=== PATIENT | female | born 1940 | race Caucasian/White ===

== ENCOUNTER 2018-03-08 13:06 | Inpatient (IN) ==
[2018-03-08] MEDS ORDERED: ISOVUE-370 100 ML INFUS..BTL IV ONE ×2 (13:40→16:51)
[2018-03-08] MEDS ORDERED: Ondansetron 4 MG/2 ML VIAL IVP ONE ×2 (13:41→16:05)
[2018-03-08] MEDS ORDERED: Famotidine 20 MG/2 ML VIAL IVP ONE (13:41)
[2018-03-08] MEDS ORDERED: *HR* FentaNYL (PF) 100 MCG/2 ML VIAL IVP ONE ×2 (13:41→16:05)
--- NOTE | 2018-03-08 13:44 | Emergency Department Note ---
Disposition Clinical Impression: Abdominal pain, Elevated LFTs, Cholelithiasis Disposition: Admitted As Inpatient Condition: Fair Referrals: Efrem Dumont MD [Primary Care Provider] - Forms: ED Satisfaction Letter Time of Disposition: 15:38 Nausea/Vomiting/Diarrhea HPI - General Chief complaint: ED Nausea/Vomiting/Diarrhea Stated complaint: VOMITING,DIARRHEA Time Seen by Provider: 03/08/18 13:31 Source: patient Limitations: no limitations Nursing Notes Reviewed: Yes Vital Signs Reviewed: Yes - History of Present Illness HPI Narrative: RUQ abd pain since this morning. States n/v/d with pain. States ate chicken salad last night, along with peach ice cream and fried chicken. States pain started this morning aftre she woke up, "feels bloated" in the epigastric area. states only belly surgery was tubal when she was younger. States hx of breast cancer. no fevers, no chills, no blood in stool/vomit Pt Subjective Complaint: nausea, vomiting, diarrhea, abdominal pain - Related Data Home Medications Medication Instructions Recorded Confirmed Calcium Carbonate/Vitamin D3 1 each PO BID 03/18/15 03/08/18 [Calcium 250+D Tablet] Levothyroxine [Synthroid] 50 mcg PO DAILY 03/18/15 03/08/18 Lisinopril [Zestril] 40 mg PO DAILY 03/18/15 03/08/18 Previous Rx's Medication Instructions Recorded Flaxseed Oil 1 cap PO BID #60 capsule 01/28/16 Anastrozole [Arimidex] 1 mg PO DAILY #90 tablet 01/20/17 Cyanocobalamin (Vitamin B-12) 1 tab PO DAILY #30 tablet 01/05/18 [Vitamin B12] Allergies Allergy/AdvReac Type Severity Reaction Status Date / Time allopurinol Allergy Rash Verified 03/08/18 13:07 clindamycin Allergy Rash Verified 03/08/18 13:07 Review of Systems: All other systems are negative except as noted/marked Chart generated with voice recognition software Nursing notes reviewed Old records reviewed Past Medical History - Past Medical History Attestation: Yes The following information was validated with the patient. Source: patient, old records reviewed, nursing notes reviewed Medical history: Reports: cancer, hypertension, kidney stones, thyroid disease, other Surgical history: Reports: breast surgery Psychiatric history: Reports: no psych history - Social History Smoking Status: Never smoker Smokeless Tobacco Status: No Alcohol use: Reports: none Drug use: Reports: none Physical Exam General: NAD, VSS Head: normocephalic, atraumatic Eyes: EOMI, PERRLA mouth: moist mucous membranes Neck: NO CLA, Supple Chest wall: normal rise, no crepitus, no deformity noted Lungs: moving air well, no distress Heart: RRR, no murmur Abd: tender in RUQ, BS hyperactive : deferred MSK: strength equal in all four extremities Ext: moves all four extremities, no obvious deformities Skin: cap refill normal, warm, dry neuro : CN2-12 grossly intact, A&Ox3 Psych: normal affect, not anxious - General Limitations: no limitations General appearance: alert, in no apparent distress Course Vital Signs Temperature 98.3 F 03/08/18 13:14 Pulse Rate 63 03/08/18 13:14 Respiratory Rate 18 03/08/18 13:14 Blood Pressure 197/70 03/08/18 13:14 O2 Sat by Pulse Oximetry 96 03/08/18 13:14 Temperature 98.3 F 03/08/18 13:14 Pulse Rate 63 03/08/18 13:14 Respiratory Rate 18 03/08/18 13:14 Blood Pressure 197/70 03/08/18 13:14 O2 Sat by Pulse Oximetry 96 03/08/18 13:14 Oxygen Delivery Oxygen Delivery Room Air Nausea/Vomiting/Diarrhea - [facility] Narrative Medical decision making narrative: 77-year-old female presents today with nausea vomiting diarrhea started this morning and a fullness in her upper abdomen. Straight tender in the right upper quadrant when he palpate. This improved somewhat with pain medicine and nausea medicine however she states she does not feel great. Her bilirubin is elevated her LFTs are elevated she does have stones and medical on the CT however they state her gallbladder does not look infected. Her white count is normal. Not sure if she has a stone stuck or if she has hepatitis but given that she is still having pain and has abnormal lab work I think she needs further workup. Consult placed to the hospitalist Hospitalist called back at 1545, discussed the case with me. At this time he did not feel she needed to be transferred down the main campus. States that she should be watched here however LFTs trended and if things do not improve then to transfer her down. I spoke with our hospitalist who agreed with this. I added a viral hepatitis panel is is a happy outbreak going around. Patient's agreeable to staying overnight and having her LFTs monitored. I will give her another dose of pain medications and nausea medicines prior to transfer to the main side of the hospital. - Medical Records Medical records reviewed: Yes I reviewed the patient's medical records. - Lab Data Lab results reviewed: Yes I reviewed the patient's lab results. Result diagrams: 03/08/18 13:52 03/08/18 13:52 Lab Results 03/08/18 03/08/18 03/08/18 Range/Units 13:52 13:52 13:52 WBC 7.5 (4.3-11.1) K/mcL RBC 3.29 L (3.82-4.97) M/mcL Hgb 10.3 L (11.5-15.4) g/dL Hct 31.4 L (35.3-44.9) % MCV 95.4 (83.0-100.0) fL MCH 31.3 (28.0-33.3) pg MCHC 32.8 (31.6-35.5) g/dL RDW 13.0 (11.5-14.5) % Plt Count 193 (140-400) K/mcL MPV 9.6 (9.4-12.4) fL Immature Gran % 0.4 (0-4) % Seg Neutrophils % 81.7 % Lymphocytes % 11.9 % Monocytes % 5.1 % Eosinophils % 0.4 % Basophils % 0.5 % Neutrophils # 6.1 (1.6-8.9) K/mcL Lymphocytes # 0.9 (0.6-4.6) K/mcL Monocytes # 0.4 (0.0-1.3) K/mcL Eosinophils # 0.0 (0.0-0.6) K/mcL Basophils # 0.0 (0.0-0.2) K/mcL PT 11.1 (9.4-12.1) Seconds INR 1.0 APTT 32.4 (26.0-36.0) Seconds Sodium 136 (136-145) mEq/L Potassium 4.9 (3.5-5.1) mEq/L Chloride 103 (98-107) mEq/L Carbon Dioxide 26 (23-29) mEq/L BUN 27 H (8-23) mg/dL Creatinine 1.34 H (0.60-1.20) mg/dL Est GFR ( Amer) 46 L (> 60) Est GFR (Non-Af Amer) 38 L (> 60) BUN/Creatinine Ratio 20 (6-26) Glucose 225 H (70-105) mg/dL Calculated Osmolality 294 (280-300) Calcium 9.6 (8.6-10.3) mg/dL Total Bilirubin 1.1 H (0.3-1.0) mg/dL Direct Bilirubin 0.7 H (0.0-0.2) mg/dL Indirect Bilirubin 0.4 (0.0-1.2) mg/dL AST 208 H (13-39) Units/L ALT 138 H (7-52) Units/L Alkaline Phosphatase 91 (34-104) Units/L Troponin I < 0.03 (< 0.04) ng/mL Serum Total Protein 7.2 (6.4-8.9) g/dL Albumin 3.8 (3.5-5.7) g/dL Globulin 3.4 (2.4-3.5) g/dL Albumin/Globulin Ratio 1.1 (1.1-2.2) Lipase 35 (11-82) Units/L - Radiology Data Radiology results reviewed: Yes I reviewed the patient's radiology results. EXAMINATION: CT OF THE ABDOMEN AND PELVIS WITHOUT CONTRAST 03/08/2018 2:56 pm TECHNIQUE: CT of the abdomen and pelvis was performed without the administration of intravenous contrast. Multiplanar reformatted images are provided for review. Dose modulation, iterative reconstruction, and/or weight based adjustment of the mA/kV was utilized to reduce the radiation dose to as low as reasonably achievable. COMPARISON: 12/27/2017. HISTORY: ORDERING SYSTEM PROVIDED HISTORY: PAIN Vomiting and diarrhea, onset this morning. Patient thinks that it may have been food poisoning. FINDINGS: Lower Chest: Mild likely atelectasis to the visualized lung bases. No focal consolidations or pleural effusions. Organs: Unenhanced liver, spleen, pancreas and adrenal glands are unremarkable. There is no evidence for urinary tract stone or urinary tract obstruction to either kidney. Redemonstration of low-attenuation foci to both kidneys felt to reflect benign renal cysts and without necessity for continued follow-up. Multiple stones redemonstrated within the gallbladder which otherwise appears unremarkable. GI/Bowel: No evidence for obstruction or definite bowel wall thickening to unopacified large or small bowel. Unopacified stomach appears unremarkable. No evidence for acute appendicitis. Pelvis: Urinary bladder, uterus and adnexa appear unremarkable. Peritoneum/Retroperitoneum: No ascites or focal fluid collections. No intraperitoneal free air. Atherosclerosis. No lymphadenopathy is seen. Bones/Soft Tissues: No acute or suspicious bony or soft tissue abnormalities. CT/CT abd pelvis wo no iv no oral IMPRESSION: No acute or focal findings are seen to the abdomen or pelvis to explain the patient's symptoms. Cholelithiasis. D/ / 03/08/2018 15:05:11 Hesham Couch MD / uri Interpreting Provider: Hesham Couch MD
[2018-03-08 14:07] LABS: Basophils % 0.5 %; Eosinophils % 0.4 %; Hematocrit 31.4 % (35.3-44.9); Hemoglobin 10.3 g/dL (11.5-15.4); Immature Granulocytes % 0.4 % (0-4); Lymphocytes # 0.9 K/mcL (0.6-4.6); Lymphocytes % 11.9 %; Mean Corpuscular HGB Conc 32.8 g/dL (31.6-35.5); Mean Corpuscular Hemoglobin 31.3 pg (28.0-33.3); Mean Corpuscular Volume 95.4 fL (83.0-100.0); Mean Platelet Volume 9.6 fL (9.4-12.4); Monocytes # 0.4 K/mcL (0.0-1.3); Monocytes % 5.1 %; Neutrophils # 6.1 K/mcL (1.6-8.9); Platelet Count 193 K/mcL (140-400); Red Blood Count 3.29 M/mcL (3.82-4.97); Segmented Neutrophils % 81.7 %
[2018-03-08 14:13] LABS: Prothrombin Time 11.1 Seconds (9.4-12.1)
[2018-03-08 14:15] LABS: Activated Partial Thrombo Time 32.4 Seconds (26.0-36.0)
[2018-03-08 14:23] LABS: Alanine Aminotransferase 138 Units/L (7-52); Albumin 3.8 g/dL (3.5-5.7); Albumin/Globulin Ratio 1.1 (1.1-2.2); Alkaline Phosphatase 91 Units/L (34-104); Aspartate Amino Transferase 208 Units/L (13-39); BUN/Creatinine Ratio 20 (6-26); Bilirubin,Direct 0.7 mg/dL (0.0-0.2); Bilirubin,Indirect 0.4 mg/dL (0.0-1.2); Bilirubin,Total 1.1 mg/dL (0.3-1.0); Blood Urea Nitrogen 27 mg/dL (8-23); Calcium 9.6 mg/dL (8.6-10.3); Carbon Dioxide 26 mEq/L (23-29); Chloride 103 mEq/L (98-107); Globulin 3.4 g/dL (2.4-3.5); Glucose 225 mg/dL (70-105); Lipase 35 Units/L (11-82); Osmolality,Calculated 294 (280-300); Potassium 4.9 mEq/L (3.5-5.1); Sodium 136 mEq/L (136-145); Total Protein 7.2 g/dL (6.4-8.9); eGFR For Non-African Americans 38 (> 60)
[2018-03-08 14:24] LABS: Troponin I < 0.03 ng/mL (< 0.04)
[2018-03-08] MEDS ORDERED: 0.9 % Sodium Chloride 1,000 ML IVC ONE (14:57)
[2018-03-08] MEDS ORDERED: Naloxone 0.4 MG/ML INJ IVP PRN (16:51)
[2018-03-08] MEDS ORDERED: *HR* HYDROcodone/Acet 5/325 mg TABLET PO PRN ×2 (16:51→19:48)
[2018-03-08] MEDS ORDERED: Ibuprofen 400 MG TABLET PO PRN (16:51)
[2018-03-08] MEDS ORDERED: Ondansetron 4 MG/2 ML VIAL IVP PRN (16:51)
[2018-03-08] MEDS ORDERED: 0.9 % Sodium Chloride 1,000 ML IVC SCH (16:51)
[2018-03-08] MEDS ORDERED: *HR* Promethazine 25 MG/ML VIAL IVP PRN (16:51)
[2018-03-08] MEDS ORDERED: MOM Conc 10 ML UD.LIQ PO PRN (16:51)
[2018-03-08] MEDS ORDERED: Mag Hydrox/Al Hydrox/Simeth 30 ML UDC PO PRN (16:51)
[2018-03-08] MEDS ORDERED: Ketorolac 30 MG/ML VIAL IVP PRN (16:51)
[2018-03-08] MEDS ORDERED: FLAXSEED OIL PO SCH (21:00)
[2018-03-08 22:03] LABS: Hepatitis B Surface Antigen Nonreactive (Nonreactive)
[2018-03-09 02:20] LABS: Hepatitis A Antibody IgM Nonreactive (Nonreactive); Hepatitis B Core IgM Nonreactive (Nonreactive); Hepatitis C Virus Antibody Nonreactive (Nonreactive)
[2018-03-09 04:58] LABS: Basophils % 0.3 %; Eosinophils # 0.1 K/mcL (0.0-0.6); Hematocrit 29.4 % (35.3-44.9); Hemoglobin 9.7 g/dL (11.5-15.4); Immature Granulocytes % 0.3 % (0-4); Lymphocytes # 1.3 K/mcL (0.6-4.6); Lymphocytes % 20.5 %; Mean Corpuscular Hemoglobin 31.4 pg (28.0-33.3); Mean Corpuscular Volume 95.1 fL (83.0-100.0); Mean Platelet Volume 9.6 fL (9.4-12.4); Monocytes # 0.5 K/mcL (0.0-1.3); Monocytes % 7.6 %; Neutrophils # 4.4 K/mcL (1.6-8.9); Platelet Count 172 K/mcL (140-400); Red Blood Count 3.09 M/mcL (3.82-4.97); Red Cell Distribution Width 12.8 % (11.5-14.5); Segmented Neutrophils % 70.3 %
[2018-03-09 05:12] LABS: Bilirubin,Urine Negative (Negative); Blood,Urine Trace-intact (Negative); Color,Urine Yellow (Yellow); Glucose,Urine (UA) Normal (Normal); Ketones,Urine Negative (Negative); Leukocyte Esterase,Urine Moderate (Negative); Nitrite,Urine Positive (Negative); PH,Urine 5.5 pH Units (5.0-8.0); Protein,Urine Negative (Neg-Trace); Specific Gravity,Urine 1.015 (1.010-1.025); Urobilinogen,Urine Normal (Normal)
[2018-03-09 05:22] LABS: Clarity,Urine Cloudy (Clear)
[2018-03-09 05:24] LABS: Bacteria,Urine Many per hpf (None-Few); RBC,Urine 0-3 per hpf (0-3)
[2018-03-09 05:24] LABS: Albumin 3.4 g/dL (3.5-5.7); Albumin/Globulin Ratio 1.1 (1.1-2.2); Bilirubin,Direct 1.5 mg/dL (0.0-0.2); Bilirubin,Total 2.3 mg/dL (0.3-1.0); Chol/HDL Ratio 5.3 (0-4.9); Globulin 3.1 g/dL (2.4-3.5); Magnesium 1.7 mg/dL (1.6-2.6); Phosphorous 2.9 mg/dL (2.7-4.5); Total Protein 6.5 g/dL (6.4-8.9)
[2018-03-09] MEDS: Levothyroxine 25 MCG TABLET PO SCH (06:39)
[2018-03-09] MEDS: Cholecalciferol (D-3) 1,000 UNIT TABLET PO SCH (08:52)
[2018-03-09] MEDS: Anastrozole 1 MG TABLET PO SCH ×2 (08:53→09:09)
[2018-03-09] MEDS ORDERED: Cyanocobalamin (B-12) 1,000 MCG TABLET PO SCH (09:00)
[2018-03-09] MEDS ORDERED: Lisinopril 20 MG TABLET PO SCH (09:00)
--- NOTE | 2018-03-09 11:12 | Internal Med History&Physical ---
Date of Encounter: 03/09/18 Time of Encounter: 10:45 Assessment and Plan (1) Vomiting and diarrhea Current visit: Yes Status: Acute Suspect viral gastroenteritis. IV fluids have been ordered. Antibiotics will be given as needed. (2) Elevated LFTs Current visit: Yes Status: Acute Hepatitis profile negative for hepatitis ABC. Possibly related to viral gastroenteritis. Alkaline phosphatase was normal in emergency room. She will probably need a gallbladder ultrasound. (3) CKD (chronic kidney disease) stage 3, GFR 30-59 ml/min Current visit: Yes Status: Acute (4) Hyperlipidemia Current visit: Yes Status: Acute Lipid profile today shows cholesterol 210, triglycerides 213, LDL 123, HDL 40, and total/HDL ratio 5.3 Qualifiers: Hyperlipidemia type: mixed hyperlipidemia Qualified Code(s): E78.2 - Mixed hyperlipidemia (5) Hypothyroidism Current visit: Yes Status: Chronic TSH was normal at 4.442 on 06/15/2016. Continue Synthroid. Qualifiers: Hypothyroidism type: unspecified Qualified Code(s): E03.9 - Hypothyroidism , unspecified (6) Hypertension Current visit: No Status: Chronic Lisinopril was held on admission to see if azotemia improves. Blood pressure will be monitored. Qualifiers: Hypertension type: essential hypertension Qualified Code(s): I10 - Essential (primary) hypertension (7) Anemia Current visit: No Status: Chronic Anemia testing has shown no factor deficiency. Continue to monitor CBC. Qualifiers: Anemia type: unspecified type Qualified Code(s): D64.9 - Anemia, unspecified Internal Medicine - H&P: HPI Chief complaint: Vomiting and diarrhea Admitted From: Emergency Dept Plans for Post Hospital Care: Home History of present illness: Ms. Das is a 77 year old female who came to emergency room stating she had onset of vomiting and diarrhea approximately 0800 the day of admission. She reports 2-3 episodes of vomiting and diarrhea without visible blood in either. There was no significant abdominal pain. She was brought to emergency room and evaluated and found to have slightly elevated LFTs. Abdominal/pelvic CT showed no acute findings. Cholelithiasis without evidence of cholecystitis was seen. She was admitted to [facility] floor for ongoing care needs. She reports previous similar episodes March 2017 and November 2017. She denies disorders of her liver or exocrine pancreas. She states she feels improved at the present time and has had no further vomiting or diarrhea since coming to emergency room. Past Med Surg Social Fam HX - Past Medical History Medical history: cancer, hypertension, kidney stones, thyroid disease Additional medical history: breast cancer-lumpectomy (20 radiation treatments) Psychiatric history: no psych history - Past Surgical History Surgical History: breast surgery Additional surgical history: BREAST CANCER - Social History Smoking Status: Never smoker Smokeless Tobacco Status: No Alcohol use: none Drug use: none - Family History Mother Living Status: Age at : 87 Hx Family Endocrine Disorder: Yes (diabetes) Father Living Status: Age at : 68 Hx Family Cancer: Yes (lung cancer) Internal Medicine - H&P: Meds Calcium Carbonate/Vitamin D3 [Calcium 250+D Tablet] 1 each PO BID 03/18/15 [ History] Levothyroxine [Synthroid] 50 mcg PO DAILY 03/18/15 [History] Lisinopril [Zestril] 40 mg PO DAILY 03/18/15 [History] Flaxseed Oil 1 cap PO BID #60 capsule 01/28/16 [Rx] Anastrozole [Arimidex] 1 mg PO DAILY #90 tablet 01/20/17 [Rx] Cyanocobalamin (Vitamin B-12) [Vitamin B12] 1 tab PO DAILY #30 tablet 01/05/18 [ Rx] 3 Allergy/AdvReac Type Severity Reaction Status Date / Time allopurinol Allergy Rash Verified 03/08/18 13:07 clindamycin Allergy Rash Verified 03/08/18 13:07 All Systems PM: A 10-system review of systems was performed and is negative for pertinent findings except as documented above in the HPI. Review of systems: Gen.: She states her weight has decreased approximately 10 pounds in the past year, intentionally Cardiovascular: She has history of hypertension but denies VT heart failure angina DVT or pulmonary embolus Respiratory: She is a lifelong nonsmoker denies chronic lung disease GI: As per history of present illness : She denies hematuria dysuria or kidney stones. She has chronic kidney disease stage III Neurologic: She denies large distribution strokes or seizures. Endocrine: She reports borderline diabetes. She has hypothyroidism. She has hyperlipidemia but does not take medication at this time. Hematology/oncology: She had breast cancer 2013 with lumpectomy followed by XRT. She is now on Arimidex. Diagnosis list includes MGUS. She follows with [facility] oncologist. She has anemia with workup December 2017 showing no fracture deficiency. She has history of B12 deficiency and is on oral B12 supplement daily. Psychiatric: She denies anxiety depression or other mental health issues. [place] skeletal: She has history of gout but does not take medication at this time. She denies other bone joint or muscle disorders. - Constitutional Vitals: Temp Pulse Resp BP Pulse Ox 99.6 F 73 14 137/62 94 03/09/18 06:23 03/09/18 06:23 03/09/18 06:23 03/09/18 06:23 03/09/18 06:23 Exam: Gen.: She is a well-developed overweight female lying in bed who appears in no acute distress at present time HEENT: Head is atraumatic and normocephalic. Eyes: EOMI. There is no scleral icterus. Mouth: Mucosa is moist. Neck: Supple and nontender. There is no thyromegaly or adenopathy noted. Heart: Regular without murmurs gallops or ectopics Lungs: No wheezes or crackles are heard. Abdomen: Soft and nontender. No masses or guarding are noted. Extremities: There is no cyanosis edema or clubbing noted. Dorsalis pedis and posttibial pulses are 1-2 over 2 bilaterally. Neurologic: Mental status: She is talkative and a good historian. Cranial nerves: Smile is symmetric. Forehead wrinkles bilaterally. Tongue protrudes midline. EOMI. Motor: There is no pronator drift. Cerebellar: Finger to nose is intact bilaterally. Skin: Warm and dry Internal Med - H&P Results - Labs CBC & Chem 7: 03/09/18 04:48 03/09/18 04:48 Labs: Short CBC 03/09/18 Range/Units 04:48 WBC 6.2 (4.3-11.1) K/mcL Hgb 9.7 L (11.5-15.4) g/dL Hct 29.4 L (35.3-44.9) % Plt Count 172 (140-400) K/mcL Neutrophils # 4.4 (1.6-8.9) K/mcL BMP 03/09/18 04:48 Sodium 138 Potassium 4.0 Chloride 105 Carbon Dioxide 26 BUN 21 Creatinine 1.26 H Glucose 130 H Calcium 9.0 Liver Function 03/09/18 Range/Units 04:48 Total Bilirubin 2.3 H (0.3-1.0) mg/dL Direct Bilirubin 1.5 H (0.0-0.2) mg/dL AST 539 H (13-39) Units/L ALT 471 H (7-52) Units/L Alkaline Phosphatase 105 H (34-104) Units/L Albumin 3.4 L (3.5-5.7) g/dL Urine 03/09/18 Range/Units 05:00 Urine Color Yellow (Yellow) Urine Clarity Cloudy A (Clear) Urine pH 5.5 (5.0-8.0) pH Units Ur Specific [place] 1.015 (1.010-1.025) Urine Protein Negative (Neg-Trace) mg/dL Urine Glucose (UA) Normal (Normal) mg/dL
[2018-03-10 05:28] LABS: Basophils % 0.7 %; Eosinophils # 0.2 K/mcL (0.0-0.6); Eosinophils % 4.1 %; Hematocrit 30.1 % (35.3-44.9); Hemoglobin 9.8 g/dL (11.5-15.4); Immature Granulocytes % 0.2 % (0-4); Lymphocytes # 1.4 K/mcL (0.6-4.6); Lymphocytes % 30.9 %; Mean Corpuscular HGB Conc 32.6 g/dL (31.6-35.5); Mean Corpuscular Hemoglobin 31.3 pg (28.0-33.3); Mean Corpuscular Volume 96.2 fL (83.0-100.0); Mean Platelet Volume 10.2 fL (9.4-12.4); Monocytes # 0.4 K/mcL (0.0-1.3); Monocytes % 8.5 %; Neutrophils # 2.6 K/mcL (1.6-8.9); Platelet Count 172 K/mcL (140-400); Red Blood Count 3.13 M/mcL (3.82-4.97); Red Cell Distribution Width 12.9 % (11.5-14.5); Segmented Neutrophils % 55.6 %
[2018-03-10 05:48] LABS: Albumin 3.5 g/dL (3.5-5.7); Albumin/Globulin Ratio 1.1 (1.1-2.2); Bilirubin,Total 3.1 mg/dL (0.3-1.0); Calcium 9.7 mg/dL (8.6-10.3); Globulin 3.1 g/dL (2.4-3.5); Potassium 3.9 mEq/L (3.5-5.1); Total Protein 6.6 g/dL (6.4-8.9)
[2018-03-10 06:14] VITALS: BP 169/69
[2018-03-10] MEDS: Levothyroxine 25 MCG TABLET PO SCH (06:14)
[2018-03-10] MEDS: Anastrozole 1 MG TABLET PO SCH (07:53)
[2018-03-10] MEDS: Cholecalciferol (D-3) 1,000 UNIT TABLET PO SCH (07:53)
[2018-03-10] MEDS ORDERED: Cyanocobalamin (B-12) 1,000 MCG TABLET PO SCH (09:00)
--- NOTE | 2018-03-10 10:55 | Discharge Summary ---
Date of Encounter: 03/10/18 Time of Encounter: 10:25 - Discharge Diagnosis (1) Vomiting and diarrhea Priority: Primary Status: Acute (2) Elevated LFTs Priority: Secondary Status: Acute (3) CKD (chronic kidney disease) stage 3, GFR 30-59 ml/min Priority: Secondary Status: Acute (4) Hyperlipidemia Priority: Secondary Status: Acute Qualifiers: Hyperlipidemia type: mixed hyperlipidemia Qualified Code(s): E78.2 - Mixed hyperlipidemia (5) Hypothyroidism Priority: Secondary Status: Chronic Qualifiers: Hypothyroidism type: unspecified Qualified Code(s): E03.9 - Hypothyroidism , unspecified (6) Hypertension Priority: Secondary Status: Chronic Qualifiers: Hypertension type: essential hypertension Qualified Code(s): I10 - Essential (primary) hypertension (7) Anemia Priority: Secondary Status: Chronic Qualifiers: Anemia type: unspecified type Qualified Code(s): D64.9 - Anemia, unspecified Hospital course: Ms. Das is a 77 year old female who came to emergency room stating she had onset of vomiting and diarrhea approximately 0800 the day of admission. She reports 2-3 episodes of vomiting and diarrhea without visible blood in either. There was no significant abdominal pain. She was brought to emergency room and evaluated and found to have slightly elevated LFTs. Abdominal/pelvic CT showed no acute findings. Cholelithiasis without evidence of cholecystitis was seen. She was admitted to [facility] for ongoing care needs. Initial orders were written by the emergency room physician. I saw her on March 09 and performed the history and physical. She had no significant right upper quadrant tenderness when I saw her for the H&P. Follow-up lab work showed bilirubin increased from 1.1 in emergency room to 3.1 on March 10. AST and ALT showed a rise then decrease but still significantly elevated. Hepatitis ABC profile returned nonreactive. She had increased right upper quadrant tenderness when I saw her on March 10. I told her I felt she needed a gallbladder ultrasound and evaluation by surgeon since this is her third episode of symptoms. She was agreeable for transfer to [facility]. I spoke with bed management and arrangements were completed for her to be transferred for ongoing care needs. - Time Spent with Patient Total time spent providing and/or coordinating discharge services: - Discharge Medications Home Medications: Calcium Carbonate/Vitamin D3 [Calcium 250+D Tablet] 1 each PO BID 03/18/15 [ History] Levothyroxine [Synthroid] 50 mcg PO DAILY 03/18/15 [History] Lisinopril [Zestril] 40 mg PO DAILY 03/18/15 [History] Flaxseed Oil 1 cap PO BID #60 capsule 01/28/16 [Rx] Anastrozole [Arimidex] 1 mg PO DAILY #90 tablet 01/20/17 [Rx] Cyanocobalamin (Vitamin B-12) [Vitamin B12] 1 tab PO DAILY #30 tablet 01/05/18 [ Rx] Allergies/Adverse Reactions: 3 Allergy/AdvReac Type Severity Reaction Status Date / Time allopurinol Allergy Rash Verified 03/08/18 13:07 clindamycin Allergy Rash Verified 03/08/18 13:07 Date of admission: 03/09/18 11:27 Primary care physician: Efrem Dumont MD - Constitutional Vitals: Temp Pulse Resp BP Pulse Ox 98.6 F 58 16 169/69 96 03/10/18 06:00 03/10/18 06:00 03/10/18 06:00 03/10/18 06:00 03/10/18 06:00 - Patient Status Disposition: Transfer Other Condition: Fair - Discharge Instructions
[2018-03-10] MEDS ORDERED: cefTRIAXone 2,000 MG in Water for inj. (sterile) 20 ML 20 ML IVP ONE (10:56)
== END 2018-03-10 12:57 | disposition other institution (70) | DRG 446 ==
LOC: EMEROOPIK 13:06 → INPPIK 13:06
PROVIDERS: ADMIT Internal Medicine; ATTEND Internal Medicine